=== PATIENT | female | born 1955 | race Caucasian/White ===

== ENCOUNTER 2018-07-17 10:55 | Day surgery (SDC) | payer MEDICARE, OTHER ==
[~2018-07-17] VITALS: Ht 175.3 cm; Wt 113.4 kg
[~2018-07-17 10:55] MED LIST: ALBUTEROL2.5 MG/3 M INH; BENZONATATE200 MG PO; CELECOXIB100 MG PO; CYMBALTA60 MG PO; DIAZEPAM5 MG PO; DOLOPHINE HCL5 MG PO; DULOXETINE HCL60 MG PO; ESTRACE0.5 MG PO; FLOVENT HFA12 GM INH; FLUOXETINE HCL20 MG PO; FOLIC ACID1 MG PO; GUAIFENESI100 MG/5 M PO; GUAIFENESIN ER600 MG PO; IPRATROPIU0.2 MG/1 M INH; LEVAQUIN 7750 MG/150 PO; LISINOPRIL10 MG PO; LISINOPRIL20 MG PO; MELOXICAM15 MG PO; METHADONE HCL10 MG PO; NAPROSYN500 MG PO; ONCE DAILY1 EACH PO; OXYCODONE HCL15 MG PO; OXYCODONE HCL5 MG PO; PREDNISONE20 MG PO; SINGULAIR10 MG PO; SOMA350 MG PO; SYMBICORT 16010.2 GM INH; TRAZODONE HCL100 MG PO; ZANAFLEX4 MG PO; ZESTRIL40 MG PO
[2018-07-17] MEDS ORDERED: NORCO 7.5-3251 EACH PO (12:36)
--- NOTE | 2018-07-17 12:48 | NUR ---
07/17/18 1248 Eunice,Evy 1232 PT ARRIVED TO PACU ON 6L VIA MASK, PT AWAKE AND TALKING TO RN. PT REPORTS PAIN IN LEFT KNEE 05/31. PT RESTING IN BED WITH NO MOANING OR GRIMACING. RESP EVEN AND UNLABORED. 1234 O2 SAT 100%, O2 MASK REMOVED. PT REPORTS PAIN 07/01. 1243 PAIN MEDICATION GIVEN, PT EDUCATION GIVEN ON DEEP BREATHING AND COUGHING.
--- NOTE | 2018-07-17 13:29 | NUR ---
1310: PATIENT BACK IN DAY SURGERY ROOM FROM PACU. C/O PAIN 4/10 IN LEFT KNEE. SANDWICH ORDERED FOR PATIENT. CMS TO LEFT FOOT/TOES WNL. LEFT KNEE DRESSING CDI. IV SITE WNL. SCD ON RIGHT LEG. CALL LIGHT WITHIN REACH. AT BEDSIDE.
--- NOTE | 2018-07-17 14:41 | NUR ---
1420 assist to br, voids qs. returned to bed ice and elevation lle. states it is more painful than she thought it would be.
--- NOTE | 2018-07-17 15:18 | NUR ---
1410: PATIENT TOLERATED SANDWICH AND WATER. MEDICATED FOR PAIN WITH 1 TAB OF HYDROCODONE. VS CHECKED. AT BEDSIDE. CALL LIGHT WITHIN REACH. 1430: PATIENT ASSISTED OOB AND TO BATHROOM. GAIT STEADY. VOID WITHOUT DIFFICULTY. PATIENT ASSISTED TO WALK BACK TO BED. 1445: DISCHARGE INSTRUCTIONS GIVEN TO PATIENT. IV DC'D WNL. TIP INTACT. DRESSING APPLIED. PATIENT DRESSED INDEPENDENTLY. PATIENT DISCHARGED TO HOME VIA WHEELCHAIR WITH .
--- NOTE | 2018-07-21 10:12 | OR ---
[facility] [address] [place], [place] [address] Signed DATE OF OPERATION: 07/17/2018 SURGEON: Frank Flower MD PREOPERATIVE DIAGNOSIS: Medial meniscus tear, left knee. POSTOPERATIVE DIAGNOSIS: Medial meniscus tear, left knee. PROCEDURE PERFORMED: Left knee arthroscopy with partial medial meniscectomies. ANESTHESIA: General. ELEVATOR INSPECTOR: None. BLOOD LOSS: Minimal. TOURNIQUET TIME: Zero. BRIEF HISTORY: Valentine is a 62-year-old female with progressively worsening pain, locking and giving out consistent with a large posteromedial meniscus tear. Risks and benefits of operative treatment were discussed with her and she elected to proceed. DESCRIPTION OF PROCEDURE: Once consent was obtained, she was taken to the operating room. After adequate anesthesia, she was placed supine on the operating table. All downside pressure points were well padded. The right leg was flexed, abducted, and externally rotated in well-padded leg varma. The left leg was placed in well-padded proximal thigh tourniquet and placed in leg varma. Portal sites were pre-injected using 0.25% Marcaine with epinephrine under alcohol prep. The leg was then prepped and draped in standard sterile fashion. Standard inferolateral and superolateral portals were made. Scope was introduced into knee. Arthroscopic findings, there was grade 2 to grade 3 chondromalacia of the patella. The trochlea was intact. Mild osteophytes were Electronically Signed By: FRANK FLOWER MD 07/19/18 1813 PATIENT NAME: VALENTINE LUONG OPERATIVE REPORT DATE OF : 59 REPORT #: [id number] PHYSICIAN: FRANK FLOWER MD PCP: ARAMIS COFFMAN MD REPORT IS CONFIDENTIAL AND NOT TO BE RELEASED WITHOUT AUTHORIZATION [facility] [address] [place], [place] [address] Signed noted bilaterally. The ACL and PCL were intact. Lateral compartment was intact. There was mild chondrocalcinosis throughout the knee as well. There was a large complex tear of the medial meniscus from the mid body extending all the away posteriorly. There were several unstable flaps in the knee joint. There was grade 2 to grade 3 chondromalacia of the medial femoral condyle and grade 1 changes on the tibia. DESCRIPTION OF OPERATION: A standard inferomedial portal was made after localization using a spinal needle. The straight and curved biters were then used to trim the meniscus tear back to a stable rim and the shaver was then used to remove all debris, smooth the remnants and feather them out. The scope was then withdrawn. Portals were closed with 3-0 nylon and knee was injected with 60 mg Toradol at the end of the case. The knee was dressed with Adaptic, ABD, and Poli wrap. She tolerated the procedure well. All sponge, needle, and instrument counts were correct. Frank Flower MD BA/TAMMI /[id number] Copies: ~ Electronically Signed By: FRANK FLOWER MD 07/19/18 1813 PATIENT NAME: VALENTINE LUONG OPERATIVE REPORT DATE OF : 59 REPORT #: [id number] PHYSICIAN: FRANK FLOWER MD PCP: ARAMIS COFFMAN MD REPORT IS CONFIDENTIAL AND NOT TO BE RELEASED WITHOUT AUTHORIZATION
== END 2018-07-17 14:45 | disposition home or self-care (01) ==
LOC: OPS 10:55 → DS 10:55 → OPS 12:00
PROVIDERS: Specialist
PROC: 0SBD4ZZ Excision of Left Knee Joint, Percutaneous Endoscopic Approach (ICD-10-PCS; principal; 2018-07-17 12:00)
DX: S83.232A Complex tear of medial meniscus, current injury, left knee, initial encounter (principal); M22.41 Chondromalacia patellae, right knee; M11.261 Other chondrocalcinosis, right knee; F41.0 Panic disorder [episodic paroxysmal anxiety]; F32.9 Major depressive disorder, single episode, unspecified; Z79.899 Other long term (current) drug therapy; Z79.51 Long term (current) use of inhaled steroids
CPT/HCPCS: 01400; J0690; J1100; J1885; J2250; J2405; J2704; J2765; J3010; J7120

== ENCOUNTER → 2020-03-30 | Emergency (ER) | payer MEDICARE, OTHER ==
[~2020-03-30] VITALS: Ht 175.3 cm; Wt 90.0 kg
[~2020-03-30] MED LIST changes: +NORCO 7.5-3251 EACH PO
== END ==
LOC: ED 13:26
DX: A41.9 Sepsis, unspecified organism (principal); D72.829 Elevated white blood cell count, unspecified; N20.0 Calculus of kidney; N17.9 Acute kidney failure, unspecified; R82.81 Pyuria; Z20.822 Contact with and (suspected) exposure to COVID-19; J45.909 Unspecified asthma, uncomplicated; I10 Essential (primary) hypertension; Z88.5 Allergy status to narcotic agent; Z91.018 Allergy to other foods; Z79.899 Other long term (current) drug therapy
CPT/HCPCS: 71250; 74176; 76775; 80053; 81001; 83605; 83690; 85025; 85610; 96365; 96375; 96376; 99285-25; C9803; J2270; J2405; J2543; J7030; U0003

== ENCOUNTER 2020-07-19 10:50 | Day surgery (SDC) | payer MEDICARE, OTHER ==
[2020-07-19] MEDS ORDERED: BUSPIRONE HCL5 MG PO (11:29)
--- NOTE | 2020-07-19 12:46 | NUR ---
07/19/20 1246 Evy Dawson 1234 PT ARRIVED TO PACU, PT TALKING TO RN AND RESP EVEN AND UNLABORED. VSS. 1237 PT ROLLED TO BACK AND DENIES CONCERNS. PLAN OF CARE DISCUSSED.
--- NOTE | 2020-07-21 15:00 | PATH ---
[facility] [address] [facility] [place], [place] [address] Signed SPECIMEN(S): A BONE MARROW - CORE SPECIMEN(S): B BONE MARROW - ASPIRATION SPECIMEN(S): C COMP FLOW CYTOMETRY, BM EDTA CLINICAL HISTORY: 64-year-old with IgG-[place]. See attached. C90.00 (multiple myeloma not having achieved remission) DIAGNOSIS SUMMARY: A. Peripheral blood - Mild eosinophilia. B. Bone marrow aspirate smears, clot section, and core biopsy: - Normocellular bone marrow with trilineage progressive hematopoiesis. - Negative for an increased number of plasma cells. - Negative for morphologic features of myelodysplastic syndrome (MDS). - Please see diagnostic comment. DIAGNOSTIC COMMENT: Clinical concern for multiple myeloma is noted. Morphologic evaluation shows no increased number of plasma cells present. Immunohistochemical stain for CD138 is also confirmatory for absence of an increased number of plasma cells. Concurrent flow cytometry study shows no monotypic population of plasma cells. Overall, morphology, immunohistochemistry, and flow cytometry are not supportive of the presence of plasma cell dyscrasia. Clinical correlation is recommended. This case has been reviewed and dictated by Julien Ramirez M.D.FACP, board certified hematopathologist. NA:vlg:C2NR PERIPHERAL BLOOD: HEMOGRAM ([facility]; 07/19/2020): WBCs 6.7 K/uL, RBCs 4.86 K/uL, HGB 13.1 g/dL, HCT 39.9%, MCV 82.1 f/L, RDW 13.6 fL, MCHC 33 g/dL, PLT 340 K/uL. DIFFERENTIAL (automated): 64% neutrophils, 21% lymphocytes, 6.5% monocytes, 6.7% eosinophils, and 1.5% basophils. Review of peripheral blood smear and CBC data demonstrate that the RBCs are normal in number and are normocytic normochromic with no anemia present. No Rouleaux formation is identified. The WBCs are also normal in number with mild relative eosinophilia noted. The granulocytes show unremarkable morphology. The platelets are normal in number and are unremarkable in morphology. PATIENT NAME: JOSH LUONG PATHOLOGY DATE OF : 59 REPORT #: [id number] PHYSICIAN: CHRIS SLAUGHTER PCP: ARAMIS COFFMAN MD REPORT IS CONFIDENTIAL AND NOT TO BE RELEASED WITHOUT AUTHORIZATION [facility] [address] [place], [place] [address] Signed BONE MARROW: BONE MARROW ASPIRATES SMEARS: The bone marrow aspirate smears are markedly hypocellular with rare bone marrow particles present. Scattered hematopoietic elements are seen showing progressive ordinary maturation. No dyshematopoiesis is identified. No increase in plasma cells is noted. BONE MARROW DIFFERENTIAL (100 CELLS): 1% blasts, 2% promyelocytes, 10% myelocytes, 25% segmented neutrophils, 16% lymphocytes, 9% monocytes, 2% eosinophils, and 35% erythroid precursors. BONE MARROW CORE BIOPSY AND CLOT SECTION: The bone marrow core biopsy demonstrates normocellular bone marrow for age with an averaging cellularity of 40%. Trilineage hematopoiesis is present with progressive ordinary maturation. There are no lymphoid aggregates, granulomas, or metastatic tumor cells present. No increase in plasma cells identified. The megakaryocytes are scattered and appear normal in number and distribution. The clot section shows many areas with bone marrow elements showing similar findings. SPECIAL STAINS (with appropriately reactive control): - Iron (aspirate smear): Absent. - Iron (clot section Block B1): Stainable iron present, negative for ringed sideroblasts. IMMUNOHISTOCHEMISTRY: Immunohistochemical stains are performed (with appropriately reactive control) and show the following results: - CD138 (Block A1): Highlights few scattered plasma cells with no increase in number noted (2-3%). - CD138 (Clot section, block B1): Highlights few scattered plasma cells with no increase in number noted (2-3%). FLOW CYTOMETRY: Bone marrow aspirate, flow cytometry: - No monotypic plasma cell detected. - No increase in blasts (1.5% myeloblasts). - Normal myeloid maturation. - No atypical lymphoid cell population. - See comment. COMMENT: Clinical concern for multiple myeloma is noted. No monotypic plasma cells are detected. No hematopoietic abnormality is detected in this study. Correlation with clinical, morphologic, and genetic findings is recommended for full interpretation and to assess for disease processes not fully examined by flow cytometry analysis, including PATIENT NAME: JOSH LUONG PATHOLOGY DATE OF : 59 REPORT #: [id number] PHYSICIAN: CHRIS PATHOLOGY PCP: ARAMIS COFFMAN MD REPORT IS CONFIDENTIAL AND NOT TO BE RELEASED WITHOUT AUTHORIZATION [facility] [address] [place], [place] [address] Signed myelodysplastic syndrome and myeloproliferative neoplasm. FLOW CYTOMETRY ANALYSIS: FLOW DIFFERENTIAL (% Total CD45 vs. SSC gating): Myeloid 77%; Lymphoid 9%; Monocyte 2%; Dim CD45/Blast: 1.5%. Cell Count: 4.8 x 10*3/uL. POPULATION ANALYSIS: BLASTS: Analysis of the dim CD45 gate demonstrates 1.5% myeloblasts by CD34/CD117. 0.8% hematogones are detected. LYMPHOID CELLS: The lymphocyte gate comprises 9% of total events and includes 83% T-cells with a CD4:CD8 ratio of 1.4:1 and normal cooper T-cell antigen expression. 2% of lymphocytes are polyclonal B-cells with a kappa:lambda ratio of 1.4:1. The remainders are NK-cells. MYELOID CELLS: The myeloid population comprises 77% of the total events. No aberrant immunophenotypic expression is detected. MONOCYTES: The monocyte population comprises 2% of the total events. Monocytes are not increased. No aberrant immunophenotypic expression is detected. PLASMA CELLS: A clinical history/concern for multiple myeloma is noted. For this reason, select additional antibodies are run to further characterize the plasma cells. 1.5% polyclonal plasma cells are detected (n=572) expressing CD45 DIM-NEG, CD38 BR, CD138 MOD, CD19 MOD (partial) and CD56 DIM-MOD (partial) while negative for CD20 with a ckappa:clambda ratio of 1.2:1. Initial Antibodies Used: KAPPA, LAMBDA, CD20, CD10, CD19, CD23, CD38, FMC7, CD16, CD56, CD8, CD5, CD2, CD4, CD7, CD3, CD14, CD33, CD13, HLADR, CD34, CD117, CD15, CD45. Additional Antibodies (necessary for further plasma cell analysis): cKAPPA, cLAMBDA, CD138. Total Antibodies Used: 27. JNB GROSS DESCRIPTION: Two specimens are received in two containers, labeled "HEYDI." A. The specimen, labeled "HEYDI, core," is received in formalin and consists of one cylindrical bone core fragment measuring 0.2 cm in diameter and 2.4 cm in length. The specimen is entirely submitted in cassette (A1) following decalcification in Immunocal. B. The specimen, labeled "HEYDI, clot," is received in formalin and consists of thickened clot material measuring 1.7 x 1.4 x 0.5 cm in aggregate. The specimen is filtered and entirely PATIENT NAME: JOSH LUONG PATHOLOGY DATE OF : 59 REPORT #: [id number] PHYSICIAN: CHRIS PATHOLOGY PCP: ARAMIS COFFMAN MD REPORT IS CONFIDENTIAL AND NOT TO BE RELEASED WITHOUT AUTHORIZATION [facility] [address] [place], [place] [address] Signed submitted in cassette (B1). Bone marrow inventory also includes: Two peripheral smears, one EDTA tube bone marrow, two heparin tubes (one bone marrow, one peripheral blood). AT (under the direct supervision of a pathologist) The Gross Description was prepared using a voice recognition system. The report was reviewed for accuracy; however, sound-alike word errors, addition and/or deletions may occur. If there is any question about this report, please contact Client Services. ADDITIONAL NOTES: Immunohistochemical and/or in situ hybridization studies were performed on this case with the appropriate positive controls that react as expected. This test was developed and its performance characteristics determined by [facility]. It has not been cleared or approved by the U.S. Food and Drug Administration. The FDA has determined that such clearance or approval is not necessary. This test is used for clinical purposes. It should not be regarded as investigational or for research. [facility] is certified under the Clinical Laboratory Improvement Amendments of 1988 (CLIA) as qualified to perform high complexity clinical laboratory testing. In this case, certain antibodies were performed by both immunohistochemistry and flow cytometry analysis because flow cytometry analysis did not fully explain all the light microscopic findings. Immunohistochemistry aided in the analysis. Both methods are deemed medically necessary in this case. Immunohistochemical and/or in situ hybridization studies were performed on this case with the appropriate positive controls that react as expected. This test was developed and its performance characteristics determined by [facility]. It has not been cleared or approved by the U.S. Food and Drug Administration. The FDA has determined that such clearance or approval is not necessary. This test is used for clinical purposes. It should not be regarded as investigational or for research. [facility] is certified under the Clinical Laboratory Improvement Amendments of 1988 (CLIA) as qualified to perform high complexity clinical laboratory testing. PERFORMING LABORATORY: PATIENT NAME: JOSH LUONG PATHOLOGY DATE OF : 59 REPORT #: [id number] PHYSICIAN: CHRIS SLAUGHTER PCP: ARAMIS COFFMAN MD REPORT IS CONFIDENTIAL AND NOT TO BE RELEASED WITHOUT AUTHORIZATION [address] [address] Signed The technical component was performed by [facility], [address] [place] [address] (Toolroom Machinist: Gilberto Odom D.O.; CLIA#: [id number]. Professional interpretation was performed by [facility], [facility], [address] [place] [address] (CLIA#: [id number]). The technical component was performed by [facility], [facility] [place] [address] (Toolroom Machinist: Gilberto Odom D.O.; CLIA#: [id number]). Professional interpretation was performed by [facility], [facility], [address] [place] [id number] (CLIA#: [id number]) IMAGES: [id number]: [id number]: [id number] FINAL DIAGNOSIS PERFORMED BY: Julien Ramirez MD, FACP, Jul 20 2020 12:45PM Diagnostician: Julien Ramirez MD, FACP Pathologist Electronically Signed 07/21/2020 Copies: ~ PATIENT NAME: JOSH LUONG PATHOLOGY DATE OF : 59 REPORT #: [id number] PHYSICIAN: CHRIS PATHOLOGY PCP: ARAMIS COFFMAN MD REPORT IS CONFIDENTIAL AND NOT TO BE RELEASED WITHOUT AUTHORIZATION
== END 2020-07-19 13:00 | disposition home or self-care (01) ==
LOC: DS 10:50 → OPS 10:50 → DS 12:00 → OPS 13:00
PROVIDERS: ATTEND Specialist
PROC: 07DR3ZX Extraction of Iliac Bone Marrow, Percutaneous Approach, Diagnostic (ICD-10-PCS; principal; 2020-07-19 12:00)
DX: C90.00 Multiple myeloma not having achieved remission (principal); D72.19 Other eosinophilia; K74.60 Unspecified cirrhosis of liver; B19.20 Unspecified viral hepatitis C without hepatic coma
CPT/HCPCS: 80053; 82784; 83615; 83883; 84155; 84165; 85025; 99153; G0500; J2250; J3010; J7121

== ENCOUNTER 2022-11-26 06:28 | Day surgery (SDC) | payer MEDICARE, OTHER ==
[~2022-11-26] VITALS: Ht 175.3 cm; Wt 96.0 kg
[~2022-11-26 06:28] MED LIST changes: +BUSPIRONE HCL5 MG PO; +FAMOTIDINE40 MG PO; +HYDROXYZINE PAM50 MG PO; +JARDIANCE25 MG; +OZEMPIC0.25 MG/02 SQ
[2022-11-26 06:46] VITALS: BP 140/76
[2022-11-26] MEDS ORDERED: POTASSIUM CITR10 ME1 PO (06:52)
[2022-11-26] MEDS ORDERED: LOSARTAN POTASS50 MG PO (06:53)
[2022-11-26] MEDS ORDERED: ATORVASTATIN CA20 MG PO (06:53)
[2022-11-26] MEDS ORDERED: FLOVENT HFA12 G1 INH (06:53)
--- NOTE | 2022-11-26 07:10 | NUR ---
PT ANXIOUS ABOUT SECOND ATTEMPT AT IV INSERTION. PRAYED FOR DEXTERITY AND GUIDANCE FOR NURSING STAFF AND PEACE FOR PATIENT.
--- NOTE | 2022-11-26 09:25 | NUR ---
11/26/22 0925 Belkis Harman 0917-PT TO PACU IN LL POSITION. ORAL AIRWAY IN PLACE. PT MOVING UPPER EXTREMITIES.PT COMMANDED TO OPEN MOUTH, RETURN DEMONSTRATION OBSERVED. ORAL AIRWAY REMOVED. PT ENCOURAGED TO TAKE DEEP BREATHS. RETURN DEMONSTRATION OBSERVED. BREATHING EASY AND UNLABORED. SPO2 >95% ON 10 L O2 VIA SIMPLE MASK. 0922-PT RESPONDS TO VERBAL AND TACTILE STIMULI. PT DENIES PAIN AND FALLS QUICKLY BACK TO SLEEP. BREATHING EASY AND UNLABORED. O2 TITRATED DOWN TO 2 L O2. SPO2 >95%.
[2022-11-26 09:47] VITALS: BP 118/71
--- NOTE | 2022-11-27 07:38 | OR ---
[facility] [address] [place], [place] [address] Signed DATE OF OPERATION: 11/26/2022 SURGEON: Ronaldo Wick MD PREOPERATIVE DIAGNOSES: 1. Diverticulosis. 2. 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 3. Change in bowel habits with increased frequency of stool approximately one year ago. POSTOPERATIVE DIAGNOSES: 1. 6 mm polyp at 40 cm in the left colon. 2. 3 mm polyp at 52 cm in the left colon. 3. 3 mm polyp at the ileocecal valve. 4. 5 mm sessile polyp at 25 cm in sigmoid colon. 5. Moderately tortuous sigmoid colon. 6. Minimal sigmoid diverticulosis. 7. Minimal to moderate internal hemorrhoids. PROCEDURE: Colonoscopy with hot biopsy. ESTIMATED BLOOD LOSS: None. INDICATIONS: Valentine is a 66-year-old female, asked to see me for a colonoscopy. She told me she had one child born vaginally many years ago. She had received a blood transfusion at that time. Apparently, this is where she contracted hepatitis C virus. Her also ended up with hepatitis C virus. He also likes to drink beer every day. He ended up with a liver transplant in 2010 at [facility]. Valentine had been going up to [place], [place] to see her ekg monitor tech, Dr. Quarles and his nurse practitioner Kym Nieves. Both have moved out of our area. Her colonoscopy in 2008 showed diverticulosis in the sigmoid colon. She was said to have some gastritis in the stomach. In 2020, she underwent upper endoscopy at the age of 64 [address] Joshua Carey in [place], [place] with that same group. She had some esophagitis but no varices and just a small hiatal hernia. She had done well with her monitored anesthesia care. She was asked to follow up in three years. She last saw the nurse practitioner in 2019. Her blood work has been quite good. She has been encouraged to follow up every six months for blood work and an ultrasound of the liver. She had her hepatitis C virus treated. She told me it is not detectable. The CT scan Electronically Signed By: RONALDO WICK MD 11/27/22 0738 PATIENT NAME: VALENTINE LUONG OPERATIVE REPORT DATE OF : 59 REPORT #: [id number] PHYSICIAN: RONALDO WICK MD PCP: ARAMIS COFFMAN MD REPORT IS CONFIDENTIAL AND NOT TO BE RELEASED WITHOUT AUTHORIZATION [facility] [address] [place] [address] Signed of the abdomen and pelvis in 2020 showed a nodular liver, but no portal hypertension and no ascites or splenomegaly. The ultrasound of her liver in 2020 performed in [place], [place] showed the same findings with a nodular liver without ascites or portal hypertension. At one point, she [facility] it [facility], in [place], [place] sometime before 2021. Unfortunately, with our shortage of doctors that group is no longer taking any new patients. She then went down to [facility] in [place], [place] in May of 2021. Hepatology Department evaluated her. Overall, she is doing well and her labs are good once again and again, she was asked to have labs every six months and an ultrasound of her liver every six months. Unfortunately, she developed staghorn calculi and ended up with a right renal abscess. She had to go over to [facility] in [place], [place] to have that treated. It was quite the ordeal. She told me she had a negative Cologuard test in 2019. There is no family history of colon cancer or polyps. About a year ago, she thinks she had a change in bowel habits with increased frequency of loose stool. We were very short on gastroenterologists here in [facility]. Consequently, she was asked to see me as a local general surgeon for a colonoscopy. In the office, I gave her a pamphlet on colonoscopy. We had reviewed the nature of the test in detail. She understands there is risk including, but not limited to gas bloating, crampy abdominal pain, bleeding, perforation requiring surgery, and missed diagnosis. We also reviewed the written instructions for the bowel prep line by line. 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 She thought using Versed and fentanyl would be just fine. She had expressed understanding and wished to proceed. PROCEDURE NOTE: Valentine was taken into our endoscopy suite and placed in the left lateral decubitus position. She was given 125 mcg of fentanyl and 7 mg of Versed. She was wide awake and talking to us and quite coherent. We therefore had to call an anesthesia provider to come for monitored anesthesia care with propofol infusion. That worked out much better. A digital rectal exam was performed and this was unremarkable. She had good sphincter tone. There were no external hemorrhoids. There were no masses. The adult colonoscope was introduced and advanced to a moderately tortuous sigmoid colon. After a few minutes, we were in the left colon and the camera travel quite nicely around into the cecum. Her prep was quite good. We could easily see the appendiceal orifice and ileocecal valve. The scope was then slowly withdrawn. The above-mentioned polyps were removed with the help of hot biopsy forceps. We can see that she has diverticula in the sigmoid colon. They were moderate in size, few in number and scattered about. Once in the rectum, the scope was retroflexed and we can see she has minimal to moderate internal hemorrhoid columns as well. After this, the gas was suctioned out and the colonoscope removed. Valentine tolerated the procedure quite well. RECOMMENDATIONS: Electronically Signed By: RONALDO WICK MD 11/27/22 0738 PATIENT NAME: VALENTINE LUONG OPERATIVE REPORT DATE OF : 59 REPORT #: [id number] PHYSICIAN: RONALDO WICK MD PCP: ARAMIS COFFMAN MD REPORT IS CONFIDENTIAL AND NOT TO BE RELEASED WITHOUT AUTHORIZATION [address] [address] Signed I will see Valentine back in my office in 7 to 14 days to review her results. She will always need monitored anesthesia care in the future. She has been encouraged on multiple occasions to seek out a ekg monitor tech in the weeks ahead. MD NATHALIA Duff/MODL /[id number] cc: MD Ronaldo Healy MD Copies: RONALDO IWCK MD ~ Electronically Signed By: RONALDO WICK MD 11/27/22 0738 PATIENT NAME: VALENTINE LUONG OPERATIVE REPORT DATE OF : 59 REPORT #: [id number] PHYSICIAN: RONALDO WICK MD PCP: ARAMIS COFFMAN MD REPORT IS CONFIDENTIAL AND NOT TO BE RELEASED WITHOUT AUTHORIZATION
--- NOTE | 2022-11-28 14:11 | PATH ---
[facility] [address] [facility] [place], [place] [address] Signed SPECIMEN(S): A DESCENDING/LEFT COLON POLYP AT 40 CM SPECIMEN(S): B DESCENDING/LEFT COLON POLYP AT 52 CM SPECIMEN(S): C ILEOCECAL VALVE POLYP SPECIMEN(S): D SIGMOID POLYP AT 25 CM SPECIMEN SOURCE: A. DESCENDING/LEFT COLON POLYP AT 40 CM B. DESCENDING/LEFT COLON POLYP AT 52 CM C. ILEOCECAL VALVE POLYP D. SIGMOID POLYP AT 25 CM CLINICAL HISTORY: Diverticulosis. Dx: Divertic, int hem, tortuous colon. FINAL PATHOLOGIC DIAGNOSIS: A. Descending / left colon polyp at 40 cm: - Hyperplastic polyp (one fragment). B. Descending / left colon polyp at 52 cm: - Hyperplastic polyp (one fragment). C. Ileocecal valve polyp: - Serrated polyp / adenoma (one fragment). D. Sigmoid polyp at 25 cm: - Tubular adenoma (one fragment). JVR:[facility] MICROSCOPIC EXAMINATION: Histologic sections of all submitted blocks are examined by light microscopy. These findings, together with the gross examination, support the pathologic diagnosis. GROSS DESCRIPTION: A. The specimen, labeled and designated "Udy, descending/left colon polyp at 40 cm," is received in formalin and consists of one armstrong soft tissue fragment, 0.3 cm. Entirely submitted in (A1). B. The specimen, labeled and designated "Udy, descending/left colon polyp at 52 cm," is received in formalin and consists of one armstrong soft tissue fragment, 0.1 cm. Entirely submitted in (B1). C. The specimen, labeled and designated "Udy, ileocecal valve polyp," is received in formalin and consists of one armstrong soft tissue fragment, 0.2 cm. Entirely submitted in (C1). D. The specimen, labeled and designated "Udy, sigmoid polyp at 25 cm," is PATIENT NAME: JOSH LUONG PATHOLOGY DATE OF : 59 REPORT #: [id number] PHYSICIAN: CHRIS PATHOLOGY PCP: ARAMIS COFFMAN MD REPORT IS CONFIDENTIAL AND NOT TO BE RELEASED WITHOUT AUTHORIZATION [facility] [address] [place], [place] [address] Signed received in formalin and consists of one armstrong soft tissue fragment, 0.3 cm. Entirely submitted in (D1). VB (under the direct supervision of a pathologist) The Gross Description was prepared using a voice recognition system. The report was reviewed for accuracy; however, sound-alike word errors, addition and/or deletions may occur. If there is any question about this report, please contact Client Services. PERFORMING LABORATORY: Technical component was performed by [facility], [address] [place] [id number] (CLIA# [id number]). Professional interpretation was performed by [facility], [address] [place] [id number] (CLIA#: [id number]). Diagnostician: Jomar Frey MD Pathologist Electronically Signed 11/28/2022 Copies: ~ PATIENT NAME: JOSH LUONG PATHOLOGY DATE OF : 59 REPORT #: [id number] PHYSICIAN: CHRIS PATHOLOGY PCP: ARAMIS COFFMAN MD REPORT IS CONFIDENTIAL AND NOT TO BE RELEASED WITHOUT AUTHORIZATION
== END 2022-11-26 09:55 | disposition home or self-care (01) ==
LOC: DS 06:28 → OPS 06:28 → DS 07:30 → OPS 07:30
PROVIDERS: ATTEND Colon & Rectal Surgery
PROC: 0DBN8ZZ Excision of Sigmoid Colon, Via Natural or Artificial Opening Endoscopic (ICD-10-PCS; 2022-11-26)
PROC: 0DBG8ZZ Excision of Left Large Intestine, Via Natural or Artificial Opening Endoscopic (ICD-10-PCS; 2022-11-26)
PROC: 0DBC8ZZ Excision of Ileocecal Valve, Via Natural or Artificial Opening Endoscopic (ICD-10-PCS; principal; 2022-11-26 07:30)
DX: D12.5 Benign neoplasm of sigmoid colon (principal); R19.4 Change in bowel habit; K57.30 Diverticulosis of large intestine without perforation or abscess without bleeding; K64.8 Other hemorrhoids; B19.20 Unspecified viral hepatitis C without hepatic coma; K74.60 Unspecified cirrhosis of liver; K44.9 Diaphragmatic hernia without obstruction or gangrene; E11.9 Type 2 diabetes mellitus without complications; I10 Essential (primary) hypertension; E66.01 Morbid (severe) obesity due to excess calories; M47.812 Spondylosis without myelopathy or radiculopathy, cervical region; K21.9 Gastro-esophageal reflux disease without esophagitis
CPT/HCPCS: 00811; 88305; 99153; G0500; J2250; J2704; J3010; J7121

== ENCOUNTER 2023-01-27 07:55 | Day surgery (SDC) | payer MEDICARE, OTHER ==
[~2023-01-27] VITALS: Ht 175.3 cm; Wt 85.5 kg
[~2023-01-27 07:55] MED LIST changes: +ATORVASTATIN CA20 MG PO; +FLOVENT HFA12 G1 INH; +LOSARTAN POTASS50 MG PO; +POTASSIUM CITR10 ME1 PO
[2023-01-27 08:27] VITALS: BP 127/83
--- NOTE | 2023-01-27 08:34 | NUR ---
EKG completed and handed to RN
[2023-01-27 08:46] LABS: BILIRUBIN, URINE NEGATIVE (negative); BLOOD/HGB, URINE NEGATIVE (Negative); KETONE, URINE NEGATIVE (Negative); LEUK ESTERASE, URINE NEGATIVE (negative); NITRITE, URINE NEGATIVE (negative)
[2023-01-27 09:08] LABS: ANION GAP 15.2 (7-21); BUN/CREATININE RATIO 11.24 (6.0-28.6); CREATININE, SERUM 1.69 mg/dL (0.55-1.02); POTASSIUM 4.2 mmol/L (3.5-5.1)
--- NOTE | 2023-01-27 12:12 | NUR ---
01/27/23 1212 Rashmi Lawrence 1154 PT ARRIVED IN PACU SLEEPY C/O FEELING COLD. WARM BLANKETS AND SANJAY PAW TURNED ON. 1200 RESTING. REU. 1212 NO C/O'S AT THIS TIME.
[2023-01-27 12:34] VITALS: BP 148/82
[2023-01-27 13:44] VITALS: BP 147/89
--- NOTE | 2023-01-27 13:48 | NUR ---
1234: PT RETURNS TO UNIT VIA STRETCHER FROM PACU. AWAKE AND ALERT ON ARRIVAL. VSS, RESP EVEN AND UNLABORED. DENIES NAUSEA AND REPORTS PAIN 6/10. DISCUSSED PAIN MANAGEMENT AND PT VOICES UNDERSTANDING. SCDS IN PLACE. POC DISCUSSED AND PT AGREEABLE. NO NEEDS VOICED, CALL LIGHT WITHIN REACH 1330: MD YURY AT THE BEDSIDE TO DISCUSS RESULTS OF SURGERY WITH PT AND PT'S SPOUSE 1345: PT AWAKE AND ALERT IN BED. VSS, RESP EVEN AND UNLABORED. REPORTS JOHANN PAIN LEVEL, 3/10. DENIES NAUSEA. IV CONVERTED TO SL AND PT DANGLED AT THE BEDSIDE. JOHANN WELL. DENIES DIZZINESS AND SOB. AMBULATES TO BR WITH STANDBY FROM THIS RN. STEADY GAIT. FIRST SUCCESSFUL POSTOP VOID, 150MLS. BACK TO ROOM TO DRESS FOR DC
--- NOTE | 2023-01-27 15:22 | NUR ---
1400: DC INSTRUCTIONS PROVIDED AND DISCUSSED ORDERED AND PT VOICES UNDERSTANDING AND DENIES QUESTIONS AND CONCERNS AT THIS TIME. SL REMOVED WITH CATHT TIP INTACT AND PRESSURE APPLIED TO SITE, WNL. PT WHEELED OFF OF UNIT AT THIS TIME. NO PHYSICAL S/S OF DISTRESS
--- NOTE | 2023-01-27 18:19 | OR ---
[facility] [address] [place], [place] [address] Signed DATE OF OPERATION: 01/27/2023 SURGEON: Fatemeh Cotton MD PREOPERATIVE DIAGNOSES: 1. Possible partially obstructing 6-7 mm right UPJ calculus. 2. Intermittent right flank discomfort. POSTOPERATIVE DIAGNOSES: 1. No evidence of any ureteropelvic junction calculus. 2. 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 3. Hydronephrosis of the upper calyx of the right kidney, secondary to infundibular stenosis. NAMES OF PROCEDURES: 1. Diagnostic cystoscopy with right retrograde pyelogram. 2. Right diagnostic nephroureteroscopy. 3. Insertion of indwelling right ureteral stent into the right collecting system. ANESTHESIA: General. ESTIMATED BLOOD LOSS: None. COMPLICATIONS: None. SPECIMENS: None. DRAINS: A 6 x 28 cm double-J ureteral stent inserted into the right collecting system. INDICATIONS FOR PROCEDURE: Valentine is a very pleasant 67-year-old female, who I have been following for a while now for recurrent and complicated nephrolithiasis. A couple of years ago, the patient was extremely sick due to a right renal abscess associated with a very large staghorn calculus. She ultimately underwent at least a couple of PCNLs on that side and had most Electronically Signed By: FATEMEH COTTON MD 01/27/23 1819 PATIENT NAME: VALENTINE LUONG OPERATIVE REPORT DATE OF : 59 REPORT #: [id number] PHYSICIAN: FATEMEH COTTON MD PCP: ARAMIS COFFMAN MD REPORT IS CONFIDENTIAL AND NOT TO BE RELEASED WITHOUT AUTHORIZATION [facility] [address] [place], [place] [address] Signed of the stones cleared out of her kidney. She recently presented to me with complaints of intermittent right-sided flank discomfort. She underwent a CT scan, which reveals dilation of the upper pole of the right kidney along with what initially appeared to be a UPJ calculus. She presented today to undergo extraction of any potential stones within the right UPJ and right renal pelvis. OPERATIVE FINDINGS: 1. On cystoscopy, there was no evidence of any suspicious masses, lesions, or stones. Bilateral ureteral orifices are in their normal anatomic location. She does have diffuse amounts of cystitis still present throughout the bladder wall, but no suspicious masses or lesions. 2. Right retrograde pyelogram was performed, which revealed a widely patent right ureter and a patent right UPJ. I can appreciate a lower pole renal calyx on the right side. There is no obvious mid pole calyx. There is an obvious area of stenosis leading to a dilated upper pole renal calyx. Pictures were taken of these areas. In general, Valentine appears to have one functional calyx and a small right renal pelvis. 3. I was able to pass a stent into the right renal pelvis. There was a partial coil noted within the right renal pelvis and a distal coil noted within the bladder. Given that there are no good renal calices, the proximal stent coil is present within the right UPJ. DESCRIPTION OF PROCEDURE: After informed consent was obtained, the patient was taken back to the operating room. [facility] room table, where general anesthesia was induced. She was placed in dorsal lithotomy position and her genitalia were prepped and draped in a standard sterile fashion. Using a 30-degree lens on a 22.5-Swazi introducer, rigid cystoscope was inserted through the urethra and into her bladder under direct visualization. Panendoscopic views of the bladder were then obtained. Please see above findings. Attention was turned to the right ureteral orifice. A cone-tipped catheter was used to perform a right retrograde pyelogram. Please see above findings. Of note, the right ureter was noted to be widely patent. I was able to pass a 0.035 Sensor wire into the right collecting system and over the wire passed a 13/15 ureteral access sheath under fluoroscopic guidance. The sheath went up quite easily. I then passed a flexible ureteroscope through the proximal ureter into the right renal pelvis. Please see above findings. I was only able to maneuver into what looked like a mid pole or a lower pole calyx. I was unable to pass my camera into the upper pole calyx and there appeared to be an area of stenosis here. Additional retrograde pyelograms were performed in this area. These were saved into our PACS system. Because I do not have any additional tools or a higher powered laser to attempt an infundibulotomy, I chose to not move any further with the ureteroscopy. In general, I did not see any significant calculi that would require any extraction on today's nephroureteroscopy. I withdrew the ureteroscope. I then passed a Sensor wire through Electronically Signed By: FATEMEH COTTON MD 01/27/23 1819 PATIENT NAME: VALENTINE LUONG OPERATIVE REPORT DATE OF : 59 REPORT #: [id number] PHYSICIAN: FATEMEH COTTON MD PCP: ARAMIS COFFMAN MD REPORT IS CONFIDENTIAL AND NOT TO BE RELEASED WITHOUT AUTHORIZATION [address] [place], [place] [address] Signed the ureteral access sheath and up into the right kidney. The ureteral access sheath was removed fully intact. Over the wire, I passed a 6 x 28 cm double-J ureteral stent into the right collecting system. A partial coil was noted within the right renal pelvis. This was not surprising to me given the limited space within the patient's right kidney. An adequate distal coil was noted on cystoscopy. Ureteral stent was placed with the string attached. The string was secured to her mons pubis at the end of the procedure. The procedure was then terminated. The patient tolerated the procedure well without any complication. She will now be transferred to the postanesthesia care unit in stable condition. DISPOSITION: I discussed the details of today's procedure with the patient's and answered all of his questions. I recommended that the patient be referred to [facility] End[facility] for definitive management of her multiple areas of infundibular stenosis within her right kidney. In particular, the upper pole of the right kidney is not draining properly due to stenosis from prior scarring, either related to her prior perc or her prior right renal abscess or both. She will be sent home today with oxycodone 5 mg one tablet p.o. q.6 hours p.r.n. pain, dispense #30 along with Cipro 500 mg p.o. b.i.d. for a total of 7 days. She will be scheduled to return to clinic in approximately two months for postoperative followup. MD WILLIAM Mortensen/[facility] /[id number] Copies: ~ Electronically Signed By: FATEMEH COTTON MD 01/27/23 1819 PATIENT NAME: VALENTINE LUONG OPERATIVE REPORT DATE OF : 59 REPORT #: [id number] PHYSICIAN: FATEMEH COTTON MD PCP: ARAMIS COFFMAN MD REPORT IS CONFIDENTIAL AND NOT TO BE RELEASED WITHOUT AUTHORIZATION
--- NOTE | 2023-01-28 06:53 | EKG ---
[facility] [address] [facility] [place] [address] Signed Normal sinus rhythm Possible Inferior infarct , age undetermined Abnormal ECG When compared with ECG of 13-JUL-2018 15:52, Borderline criteria for Inferior infarct are now present Confirmed by JOSE DE JESUS BRAVO MD ([id number]) on 01/28/2023 6:53:21 AM Electronically Signed By: JOSE DE JESUS BRAVO 01/28/23 0653 PATIENT NAME: JOSH LUONG Electrocardiogram DATE OF : 59 PHYSICIAN: JOSE DE JESUS BRAVO REPORT #: [id number] REPORT IS CONFIDENTIAL AND NOT TO BE RELEASED WITHOUT AUTHORIZATION
== END 2023-01-27 14:00 | disposition home or self-care (01) ==
LOC: OPS 07:55 → DS 07:55 → OPS 10:50 → DS 10:50 → OPS 14:00
PROVIDERS: ATTEND Urology
PROC: 0T768DZ Dilation of Right Ureter with Intraluminal Device, Via Natural or Artificial Opening Endoscopic (ICD-10-PCS; principal; 2023-01-27 10:50)
DX: N13.2 Hydronephrosis with renal and ureteral calculous obstruction (principal); N18.30 Chronic kidney disease, stage 3 unspecified
CPT/HCPCS: 36415; 74420; 80048; 81003; 85025; 93005; 93010; J0131; J0690; J1885; J2405; J2704; J3010; J7121; Q9967

== ENCOUNTER 2023-12-04 06:54 | Day surgery (SDC) | payer MEDICARE, OTHER ==
[2023-12-01 08:38] VITALS: BP 130/84
[~2023-12-04] VITALS: Ht 175.3 cm; Wt 68.2 kg
[~2023-12-04 06:54] MED LIST changes: +MIDAZOLAM HCL 5 MG/5 ML VIAL IV PRN; +fentaNYL citrate 100 MCG/2 ML VIAL IV PRN
[2023-12-04] MEDS ORDERED: LACTATED RINGER'S 1,000 ML IV SCH (07:00)
[2023-12-04] MEDS ORDERED: LIDOCAINE HCL 1% 5 ML SDV INJ ONE (07:00)
[2023-12-04] MEDS ORDERED: IBLOOD GLUCOSE TEST STRIP 1 EA TEST VI PRN (07:00)
[2023-12-04 07:03] VITALS: BP 148/76
[2023-12-04] MEDS ORDERED: VENTOLIN HFA18 GM (07:08)
--- NOTE | 2023-12-04 07:34 | NUR ---
PT NOT AVAILABLE FOR VISIT. PROVIDED PRAYER.
--- NOTE | 2023-12-04 07:40 | NUR ---
patient arrives to the unit ambulatory at 0655. patient roomed to room 8. patient instructed to undress, but allowed to keep underwear on since this is just an EGD. preadmission questions completed. IV started with fluids running. blood glucose checked with a reading of 96. bed in lowest position with call light within reach. patient denies any needs at this time.
[2023-12-04] MEDS ORDERED: LIDOCAINE HCL 2% 5 ML SDV ONE (08:15)
[2023-12-04] MEDS ORDERED: propofoL 200 MG/20 ML VIAL ONE (08:15)
[2023-12-04 09:13] VITALS: BP 137/77
--- NOTE | 2023-12-04 09:29 | NUR ---
12/04/23 0929 Evy Dawson 6281 PT ARRIVED TO PACU PT WAKES EASILY AND DENIES CONCERNS. PLAN OF CARE DISCUSSED AND VSS. 0900 HOB INCREASED AND PT COUGHING OFF AND ON. PT SIPPING WATER AND DENIES CONCERNS. PT LOOKING AT HER PICTURE AND QUESTIONS ANSWERED. 920 PT DRESSED HERSELF AND CALLED. DC INSTRUCTIONS AND PAPERWORK GIVEN. PT DC VIA WC WITH ALL BELONGINGS.
--- NOTE | 2023-12-05 06:55 | OR ---
[facility] [address] [place], [place] [address] Signed DATE OF OPERATION: 12/04/2023 SURGEON: Ronaldo Wick MD PREOPERATIVE DIAGNOSES: 1. History of transfusion related hepatitis C virus, now treated and undetectable. 2. Cirrhosis of the liver. 3. History of gastritis. 4. History of esophagitis. 5. Small hiatal hernia. 6. Gastroesophageal reflux disease. POSTOPERATIVE DIAGNOSES: 1. Mild diffuse punctate hemorrhagic gastritis. 2. Small hiatal hernia. PROCEDURES: Esophagogastroduodenoscopy with CLOtest and biopsies of the antrum. ESTIMATED BLOOD LOSS: None. INDICATIONS: Valentine is a 67-year-old female asked to see me for a followup upper endoscopy. She had contracted hepatitis C virus in the 70s from a blood transfusion. Unfortunately, she has some cirrhosis of the liver related to that. [facility] has treated her hepatitis C virus and it is now undetectable. Her upper endoscopy in [address] at age of 52 [address] Quarles showed minimal gastritis. A colonoscopy at that time showed a little diverticulosis. Dr. Carey in 2020 at the age of 64 helped her and found a little bit of esophagitis with a small hiatal hernia, but no esophageal varices. She always requires monitored anesthesia care. She has been asked to follow up every three years. I helped her with a colonoscopy in November 2022 at the age of 66. She had hyperplastic polyps, serrated adenomatous polyps, and tubular adenomatous polyps along with a tortuous colon and minimal diverticulosis and internal hemorrhoids. We did give her 7 mg of Versed and 125 mcg of fentanyl. She was wide awake. We had to have an anesthesia provider come and give her propofol to complete the procedure. I reviewed the CT scan and an ultrasound in 2020 that showed a nodular liver, but no ascites and no portal hypertension. She had a noncontrast CT scan in December 2022 by her urologist for kidney stones. The liver was said to be unremarkable without any contrast. Of course, she has diverticulosis. Apparently, the appendix and the Electronically Signed By: RONALDO WICK MD 12/05/23 0655 PATIENT NAME: VALENTINE LUONG OPERATIVE REPORT DATE OF : 59 REPORT #: [id number] PHYSICIAN: RONALDO WICK MD PCP: ARAMIS COFFMAN MD REPORT IS CONFIDENTIAL AND NOT TO BE RELEASED WITHOUT AUTHORIZATION [facility] [address] [place] [address] Signed gallbladder have been removed. She ended up with a right kidney infection from her staghorn calculus and had to have her entire kidney removed at [facility]. She asked to follow along with her machine try out setter, Dr. Osman. Her BUN and creatinine are slightly elevated. She has been having acid reflux. Her primary care provider added Pepcijamarcus. She had been asked to come back and see me as a local general surgeon for upper endoscopy with respect to the above. We did send her for preoperative blood work and the hemoglobin was good at 13.7 with a platelet count of 361. Her INR was good at 0.95. Her BUN was 22 and creatinine was 1.87. Liver function tests are good with a total bilirubin of 0.4, AST 19, ALT 34, alkaline phosphatase 68, and albumin 3.9. I had given her a pamphlet in the office on upper endoscopy. We had reviewed the nature of the test. There is risk including, but not limited to gas bloating, crampy abdominal pain, bleeding, perforation requiring surgery, and missed diagnosis. She is also aware that we do not have a under sheriff at our small critical access hospital. If she would need that service, she would have to be referred outside our hospital here in [place], [place]. We also reviewed the need for monitored anesthesia care, which is a very boggs decision for her. She took a lot of propofol today. She understands an adult person has to take her home afterwards. She had expressed understanding and wished to proceed. DESCRIPTION OF PROCEDURE: Valentine was taken into our endoscopy suite and placed in the supine semi-recumbent position. A bite block was utilized for the case. The posterior oropharynx was anesthetized with lidocaine spray. She was given monitored anesthesia care propofol infusion per our nurse staffing mgr. The adult gastroscope was introduced and advanced out into the third portion the duodenum. Unfortunately, she had quite a bit of saliva in her mouth. She coughed and gag constantly during the procedure. The duodenum and pyloric channel were unremarkable. She has the typical mild diffuse punctate hemorrhagic gastritis. The gastric wall did not appear overly edematous. We went and took a biopsy of the antrum for CLOtest as well as pathologic review. There were no ulcerations. Upon retroflexion of scope, she had some saliva up around the GE junction, but it has to be watched through several respiratory cycles. It looks like she does have a small hiatal hernia. The scope was withdrawn up through this area. We saw no gastric or esophageal varices. There was no stricture. She has minimal disruption to the Z-line. There was no Rodney mucosa. It was hard to measure anything from her constant coughing. The distal middle and upper esophagus were unremarkable. Again, we saw no esophageal varices. After this, the gas was suctioned out, a slide was suctioned out of her posterior oropharynx. Overall, Valentine tolerated the procedure quite well. RECOMMENDATIONS: Valentine is welcome to follow up every three years for repeat upper endoscopy for surveillance reasons. She will always need monitored anesthesia care. Electronically Signed By: RONALDO WICK MD 12/05/23 0655 PATIENT NAME: VALENTINE LUONG OPERATIVE REPORT DATE OF : 59 REPORT #: [id number] PHYSICIAN: RONALDO WICK MD PCP: ARAMIS COFFMAN MD REPORT IS CONFIDENTIAL AND NOT TO BE RELEASED WITHOUT AUTHORIZATION [address] [address] Signed Ronaldo Wick MD [facility] /[id number] cc: MD Dr. Sunil Duff [facility] [place] MD Yung Healy MD Copies: RONALDO WICK MD, FADI H MD ~ Electronically Signed By: RONALDO WICK MD 12/05/23 0655 PATIENT NAME: VALENTINE LUONG OPERATIVE REPORT DATE OF : 59 REPORT #: [id number] PHYSICIAN: RONALDO WICK MD PCP: ARAMIS COFFMAN MD REPORT IS CONFIDENTIAL AND NOT TO BE RELEASED WITHOUT AUTHORIZATION
--- NOTE | 2023-12-08 16:21 | PATH ---
[facility] [address] [place], [place] [address] Signed SPECIMEN(S): A ANTRUM BIOPSY SPECIMEN SOURCE: A. ANTRUM BIOPSY CLINICAL HISTORY: GERD, hiatal hernia, mild hemorrhagic gastritis FINAL PATHOLOGIC DIAGNOSIS: Antrum biopsy: - Benign gastric mucosa with focal slight chronic inflammation. - Negative for Helicobacter organisms on routine HE-stained sections. JVR:clv MICROSCOPIC EXAMINATION: Histologic sections of all submitted blocks are examined by light microscopy. These findings, together with the gross examination, support the pathologic diagnosis. GROSS DESCRIPTION: The specimen, labeled and designated "Konstantin, antrum biopsy," is received in formalin and consists of one armstrong soft tissue fragment, 0.6 cm. Entirely submitted in (A1). VB (under the direct supervision of a pathologist) The Gross Description was prepared using a voice recognition system. The report was reviewed for accuracy; however, sound-alike word errors, addition and/or deletions may occur. If there is any question about this report, please contact Client Services. PERFORMING LABORATORY: Technical component was performed by [facility], [address] [place] [id number] (CLIA# [id number]). Professional interpretation was performed by [facility], [address] [place] [id number] (CLIA#: [id number]). Diagnostician: Jomar Frey MD Pathologist Electronically Signed 12/08/2023 Copies: PATIENT NAME: JOSH LUONG PATHOLOGY DATE OF : 59 REPORT #: [id number] PHYSICIAN: CHRIS PATHOLOGY PCP: ARAMIS COFFMAN MD REPORT IS CONFIDENTIAL AND NOT TO BE RELEASED WITHOUT AUTHORIZATION [address] [address] Signed ~ PATIENT NAME: JOSH LUONG PATHOLOGY DATE OF : 59 REPORT #: [id number] PHYSICIAN: CHRIS PATHOLOGY PCP: ARAMIS COFFMAN MD REPORT IS CONFIDENTIAL AND NOT TO BE RELEASED WITHOUT AUTHORIZATION
== END 2023-12-04 09:21 | disposition home or self-care (01) ==
LOC: DS 06:54
PROVIDERS: ATTEND Colon & Rectal Surgery
PROC: 0DB68ZX Excision of Stomach, Via Natural or Artificial Opening Endoscopic, Diagnostic (ICD-10-PCS; principal; 2023-12-04 08:45)
DX: K29.51 Unspecified chronic gastritis with bleeding (principal); K44.9 Diaphragmatic hernia without obstruction or gangrene; K74.60 Unspecified cirrhosis of liver; K21.9 Gastro-esophageal reflux disease without esophagitis; I12.9 Hypertensive chronic kidney disease with stage 1 through stage 4 chronic kidney disease, or unspecified chronic kidney disease; E11.22 Type 2 diabetes mellitus with diabetic chronic kidney disease; N18.32 Chronic kidney disease, stage 3b; F41.9 Anxiety disorder, unspecified; C90.00 Multiple myeloma not having achieved remission; N20.0 Calculus of kidney; J45.20 Mild intermittent asthma, uncomplicated; E78.49 Other hyperlipidemia; Z88.5 Allergy status to narcotic agent; Z88.8 Allergy status to other drugs, medicaments and biological substances; Z79.899 Other long term (current) drug therapy
CPT/HCPCS: 00813; 36415; 87077; J2001; J2704; J7121